=== PATIENT | female | born 1980 | race African-American/Black ===

== ENCOUNTER 2018-01-06 09:15 | Emergency (ER) | payer SELFPAY ==
[~2018-01-06] VITALS: Ht 167.6 cm; Wt 55.0 kg
--- NOTE | 2018-01-06 09:22 | PD ---
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 Pt said normally she has epi pen but does not today. Pt feels warm, feels like her throat is getting swollen and said she normally gets hives in an hour. Denies any chest pain, sob, n/v, abdominal pain, focal weakness or numbness. PFSH Social History Tobacco Use: No Allergies-Medications (Allergen,Severity, Reaction): Coded Allergies: cinnamon (Verified Allergy, Severe, Anaphylaxis, 01/06/18) terbutaline (Verified Allergy, Severe, Anaphylaxis, 01/06/18) zolpidem (Verified Allergy, Severe, Anaphylaxis, 01/06/18) acetaminophen (Verified Allergy, Mild, Hives, 01/06/18) oxycodone (Verified Allergy, Mild, Hives, 01/06/18) orange (Verified Allergy, Unknown, 01/06/18) Reported Meds & Prescriptions Reported Meds & Active Scripts Active Diphenhydramine (Diphenhydramine HCl) 25 Mg Cap 25 Mg PO Q6H PRN 5 Days Epipen 2-Jaiden Inj (Epinephrine) 0.3 Mg/0.3 Ml Pfpen 0.3 Mg IM ONCE PRN Prednisone 50 Mg Tab 50 Mg PO DAILY 5 Days Review of Systems Except as stated in HPI: all other systems reviewed are Neg Physical Exam Narrative GENERAL: 37yo F very anxious appearing. SKIN: No urticaria. HEAD: Atraumatic. Normocephalic. EYES: Pupils equal and round. No scleral icterus. No injection or drainage. ENT: Uvula midline. No uvula edema, lip or tongue swelling. NECK: Trachea midline. No JVD. CARDIOVASCULAR: Regular rate and rhythm. No murmur appreciated. RESPIRATORY: No accessory muscle use. Clear to auscultation. Breath sounds equal bilaterally. GASTROINTESTINAL: Abdomen soft, non-tender, nondistended. MUSCULOSKELETAL: No obvious deformities. No clubbing. No cyanosis. No edema. NEUROLOGICAL: Awake and alert. No obvious cranial nerve deficits. Motor grossly within normal limits. Normal speech. PSYCHIATRIC: Appropriate mood and affect; insight and judgment normal. Data Data Last Documented VS Vital Signs Date Time Temp Pulse Resp B/P (MAP) Pulse Ox O2 Delivery O2 Flow Rate FiO2 01/06/18 10:35 69 18 114/55 (74) 100 Room Air Orders Orders Ecg Monitoring (01/06/18 09:21) Iv Access Insert/Monitor (01/06/18 09:21) Oximetry (01/06/18 09:21) Diphenhydramine Inj (Benadryl Inj) (01/06/18 09:30) Methylprednisolone So Succ Inj (Solumedr (01/06/18 09:30) Epinephrine (1:1000) Inj (Adrenalin (1:1 (01/06/18 09:30) Ed Discharge Order (01/06/18 12:42) MDM Medical Decision Making Medical Screen Exam Complete: Yes Emergency Medical Condition: Yes Differential Diagnosis Allergic reaction vs. anxiety Narrative Course 37yo F with allergic reaction to cinnamon. Pt said she normally gets epinephrine and that she could not breathe and she feels like her throat is closing. No wheezing on exam. No uvula edema or lip or tongue swelling. Pt is very well appearing. Pt given epinephrine, diphenhydramine, methylprednisolone. Pt reevaluated after medications and said symptoms has resolved. Pt has been observed in the ED for 3 hours and has no symptoms. Return precautions given. Diagnosis Primary Impression: Allergic reaction Qualified Codes: T78.40XA - Allergy, unspecified, initial encounter Patient Instructions: General Instructions Departure Forms: Tests/Procedures Additional Instructions: Please follow up with your primary care physician in 3-7 days. Return to the ED if symptoms worsen. Med/Other Pt SpecificInfo: Prescription(s) given Scripts Diphenhydramine (Diphenhydramine) 25 Mg Cap 25 MG PO Q6H Y for ALLERGIES for 5 Days, #20 CAP 0 Refills Prov: Nallely Sharp DO 01/06/18 Epinephrine Inj (Epipen 2-Jaiden Inj) 0.3 Mg/0.3 Ml Pfpen 0.3 MG IM ONCE Y for ALLERGIC REACTION, #1 PACK 0 Refills Prov: Nallely Sharp DO 01/06/18 Prednisone (Prednisone) 50 Mg Tab 50 MG PO DAILY for 5 Days, #5 TAB 0 Refills Prov: Nallely Sharp DO 01/06/18 Disposition: 01 DISCHARGE HOME Condition: Stable SharpNallely henley Jan 06, 2018 09:22
[2018-01-06 09:23] VITALS: BP 116/56; PULSE 71; RESP 18; O2SAT 100
[2018-01-06] MEDS ORDERED: diphenhydrAMINE HCL 50 MG/ML VIAL IVP ONE (09:30)
[2018-01-06] MEDS ORDERED: methylPREDNISolone SOD SUCC 125 MG/2 ML VIAL IV PUSH ONE (09:30)
[2018-01-06] MEDS ORDERED: EPINEPHrine HCL (1:1000) 1 MG/ML VIAL IM ONE (09:30)
[2018-01-06 09:36] VITALS: RESP 18; O2SAT 100
[2018-01-06 10:03] VITALS: BP 114/67; PULSE 78; RESP 18; O2SAT 99
[2018-01-06 10:35] VITALS: BP 114/55; PULSE 69; RESP 18; O2SAT 100
[2018-01-06] MEDS ORDERED: PRED50 PO (12:42)
[2018-01-06] MEDS ORDERED: DIPH25CA PO (12:42)
[2018-01-06] MEDS ORDERED: EPIP0.3I IM (12:42)
== END 2018-01-06 12:44 | disposition home or self-care (01) ==
LOC: NEPE 09:15
DX: T78.09XA Anaphylactic reaction due to other food products, initial encounter (principal)
CPT/HCPCS: 96372; 96374; 96375; 99284; J0171; J1200; J2930